=== PATIENT | female | born 2000 ===

== ENCOUNTER 2022-09-08 09:42 | Outpatient (CLI) | payer MEDICAID, SELFPAY | END 2022-09-08 09:43 | disposition home or self-care (01) | PROVIDERS: PCP Pediatrics; Visit Provider Family Medicine | DX: Z00.00 Encounter for general adult medical examination without abnormal findings (principal); N94.6 Dysmenorrhea, unspecified; F41.9 Anxiety disorder, unspecified; Z13.6 Encounter for screening for cardiovascular disorders | CPT/HCPCS: 80053; 80061; 83001; 83002; 84270; 84402; 84403 ==

== ENCOUNTER 2022-09-28 15:48 | Outpatient (CLI) | payer MEDICAID, SELFPAY ==
--- NOTE | 2022-09-28 16:00 | CRLHL7_ITS ---
For Patients: As a result of the Century Cures Act, medical imaging exams and procedure reports are released immediately into your electronic medical record. You may view this report before your referring provider. If you have questions, please contact your health care provider. CLINICAL HISTORY: DYSMENORRHAGIA TECHNIQUE: 2D mahoney scale ultrasound. In addition color Doppler and spectral Doppler analysis was performed of the pelvis using a transabdominal approach. FINDINGS: On transabdominal imaging, the myometrium has a normal uniform echotexture. The uterus measures 8.2 x 4.2 x 5.8 cm. The endometrial lining measures 13 mm in thickness. The right ovary measures 3.8 x 2.0 x 2.7 cm in size and the left ovary measures 5.0 x 1.9 x 3.0 cm. The ovaries demonstrate normal arterial and venous blood flow on color Doppler and spectral Doppler analysis. Trace pelvic free fluid. IMPRESSION: Endometrial thickness 13 millimeters. No endometrial fluid. No uterine fibroid. Trace pelvic free fluid. Ovaries normal. No torsion. Dictated by Mark Cano MD @ 09/29/2022 8:56:18 AM (Electronically Signed)
== END 2022-09-28 15:49 | disposition home or self-care (01) ==
PROVIDERS: PCP Family Medicine; Visit Provider Family Medicine
DX: N94.6 Dysmenorrhea, unspecified (principal); R93.89 Abnormal findings on diagnostic imaging of other specified body structures
CPT/HCPCS: 76856; 93976; T1013

== ENCOUNTER 2024-09-20 10:25 | Outpatient (CLI) | payer BC, SELFPAY | END 2024-09-20 10:26 | disposition home or self-care (01) | PROVIDERS: Visit Provider Family Medicine | DX: N94.6 Dysmenorrhea, unspecified (principal) | CPT/HCPCS: 80053; 82728 ==

== ENCOUNTER 2024-11-14 08:55 | Outpatient (CLI) | payer BC, SELFPAY ==
--- NOTE | 2024-11-14 09:15 | CRLHL7_ITS ---
For Patients: As a result of the Cures Act, medical imaging exams and procedure reports are released immediately into your electronic medical record. You may view this report before your referring provider. If you have questions, please contact your health care provider. INDICATION: Dysmenorrhea. Evaluate for endometriosis. COMPARISON: Pelvic ultrasound dated 28 September 2022. TECHNIQUE: Pelvic MRI with T1, T2, and postcontrast images. Intravenous gadolinium administered. FINDINGS: Normal appearance of the uterus. Normal thickness of the endometrial stripe measuring 1.1 cm in thickness. 2.4 cm right ovarian cyst. 1.7 cm probable collapsing cyst in the right ovary. Scattered small follicles in the right ovary. The right ovary measures 5.0 x 3.7 x 2.9 cm. Scattered small follicles in the left ovary. The left ovary measures 3.0 x 2.3 x 1.7 cm. Small amount of free fluid in the pelvis. No pelvic adenopathy. No other bony or soft tissue abnormalities identified. Impression : 1. Normal appearance of the uterus. 2. 2.4 cm right ovarian cyst. 1.7 cm probable collapsing cyst in the right ovary. The ovaries are otherwise unremarkable. 3. No endometriosis identified. Dictated by Janes Ferro MD @ 11/17/2024 11:28:25 AM (Electronically Signed)
== END 2024-11-14 08:56 | disposition home or self-care (01) ==
LOC: MRI 08:56
PROVIDERS: PCP Family Medicine; Visit Provider Family Medicine
DX: N94.6 Dysmenorrhea, unspecified (principal); N83.201 Unspecified ovarian cyst, right side
CPT/HCPCS: 72197; A9575